=== PATIENT | female | born 1985 | race Caucasian/White ===

== ENCOUNTER 2021-07-01 06:48 | Outpatient (CLI) | payer MEDICAID, SELFPAY ==
--- NOTE | 2021-07-01 06:54 | US_ITS ---
WS: [id number] TRANSVAGINAL PELVIC ULTRASOUND HISTORY: IRREGULAR MENSTRUAL CYCLE, PELVIC PAIN COMPARISON: None available. Uterus: 8.9 cm x 5.5 cm x 4.5 cm. Uterus is top normal size and anteverted. Very minimal heterogeneit y in the myometrium. No fibroid or mass identified. Endometrium: 0.9 cm. No abnormality. No increased vascularity or mass identified. Right ovary: 2.3 cm x 1.9 cm x 3.2 cm. Normal size and vascularity, no cystic or solid masses. Small follicles in the RIGHT ovary. Left ovary: 3.1 cm x 1.3 cm x 2.1 cm. Normal size and vascularity, no cystic or solid masses. No free fluid. US/US transvaginal [id number] IMPRESSION: 1. Normal endometrium. 2. Normal uterus.
== END 2021-07-01 06:49 | disposition home or self-care (01) ==
LOC: RAD 06:49
PROVIDERS: Family Provider Family Medicine; PCP Family Medicine; Visit Provider Family Medicine
DX: N92.6 Irregular menstruation, unspecified (principal); R10.2 Pelvic and perineal pain
CPT/HCPCS: 76830

== ENCOUNTER → 2022-01-19 10:02 | Outpatient (BNVA) | payer MEDICAID, SELFPAY | PROVIDERS: PCP Nurse Practitioner; Visit Provider Family Medicine | DX: M25.511 Pain in right shoulder (principal) | CPT/HCPCS: 73030 ==

== ENCOUNTER 2024-04-26 13:53 | Emergency (ER) | payer OTHER, SELFPAY ==
[2024-04-26 13:55] VITALS: BP 109/81; PULSE 103; RESP 16; TEMP 36.3; O2SAT 99; BMI 29.2
[2024-04-26 14:17] LABS: Bilirubin Urine Negative (Negative); Blood Urine Negative (Negative); Glucose Urine UA Negative (Normal); Ketones Urine Negative (Negative); Leukocyte Esterase Urine Negative (Negative); Nitrate Urine Negative (Negative); Protein Urine Negative (Negative); Specific Gravity, Urine 1.021 (1.005-1.030); Urine Appearance Clear (CLEAR); Urine Color Yellow (Yellow); pH Urine 5.5 (5-7)
[2024-04-26 14:22] LABS: Add Urine Microscopic? YES; Bacteria Urine None Seen /hpf; Hyaline Casts Urine 0.81 /lpf; Squamous Epithelial Cell Urine 0-5 /hpf (0-5); WBC Urine 0-5 /hpf (0-5)
[2024-04-26 14:31] LABS: Basophils # 0.1 10^3/uL (0.0-0.1); Basophils % 0.7 %; Eosinophils # 0.4 10^3/uL (0.0-0.8); Eosinophils % 2.5 %; Hematocrit 53.1 % (36-47); Lymphocytes # 5.5 10^3/uL (0.8-4.8); Lymphocytes % 35.4 %; Mean Corpuscular HGB Conc 33.7 g/dL (30-55); Mean Platelet Volume 9.6 fL (7.4-10.4); Monocytes # 0.6 10^3/uL (0.2-0.9); Monocytes % 3.9 %; Neutrophils # 8.86 10^3/uL (1.8-7.7); Nucleated Red Blood Cells % 0 %; Platelet Count 367 10^3/cmm (157-399); Red Blood Count 5.42 10^6/uL (3.85-5.65); Red Cell Distribution Width 12.3 % (12.1-15.1); White Blood Count 15.53 10^3/uL (3.29-11.43)
[2024-04-26 14:39] LABS: HCG, Serum Qual Negative (Negative)
[2024-04-26 14:45] LABS: Alanine Aminotransferase 27 U/L (0-33); Albumin Level 4.7 g/dL (3.5-5.2); Alkaline Phosphatase 102 U/L (35-105); Anion Gap 18.9 (5-19); Aspartate Amino Transferase 19 U/L (0-32); Blood Urea Nitrogen 8 mg/dL (6-20); Calcium 9.6 mg/dL (8.5-10.5); Carbon Dioxide 21 mmol/L (22-29); Chloride 102 mmol/L (98-107); Creatinine Clr Calc Pharmacy 100.6523; Globulin 2.5 g/dL (1.3-4.6); Glomerular Filtration Rate 93.2 mL/min (90-130); Glucose 81 mg/dL (65-115); Lipase 52 U/L (13-60); Osmolality Calculated 283 mOsm/kg (285-295); Potassium 3.9 mmol/L (3.5-5.1); Sodium 138 mmol/L (136-145); Total Bilirubin 0.4 mg/dL (0.15-1.2); Total Protein 7.2 g/dL (6.6-8.7)
[2024-04-26 14:49] VITALS: BP 122/87; PULSE 77; RESP 16; O2SAT 98
--- NOTE | 2024-04-26 15:03 | CTR_ITS ---
PROCEDURE INFORMATION: Exam: CT Abdomen And Pelvis With Contrast Exam date and time: 04/26/2024 3:24 PM Age: 39 years old Clinical indication: Abdominal pain; Localized; Right; Additional info: R abdominal pain TECHNIQUE: Imaging protocol: Computed tomography of the abdomen and pelvis with contrast. Radiation optimization: All CT scans at this facility use at least one of these dose optimization techniques: automated exposure control; mA and/or kV adjustment per patient size (includes targeted exams where dose is matched to clinical indication); or iterative reconstruction. Contrast material: OMNIPAQUE 350; Contrast volume: 100 ml; Contrast route: INTRAVENOUS (IV); COMPARISON: US transvaginal [id number] 07/01/2021 7:16 AM RADIATION DOSE METRICS: Total DLP (mGy-cm): 598.92 FINDINGS: Heart: AICD leads partially imaged. Liver: Normal. No mass. Gallbladder and biliary ducts: Normal. No calcified stones. No ductal dilation. Pancreas: Normal. No ductal dilation. Spleen: Normal. No splenomegaly. Adrenal glands: Normal. No mass. Kidneys and ureters: Normal. No hydronephrosis. Stomach and bowel: Unremarkable. No obstruction. No mucosal thickening. Appendix: No evidence of appendicitis. Intraperitoneal space: Unremarkable. No free air. No significant fluid collection. Vasculature: Mild atherosclerotic aortic calcifications. No aortic aneurysm. Lymph nodes: Unremarkable. No enlarged lymph nodes. Urinary bladder: Unremarkable as visualized. Reproductive: Unremarkable as visualized. Bones/joints: Unremarkable. No acute fracture. Soft tissues: Unremarkable. CT/CT abdomen pelvis w con* [id number] IMPRESSION: No acute findings in the abdomen/pelvis.
--- NOTE | 2024-04-26 15:10 | ED_ITS ---
HPI - Abdominal Pain 2 General: Chief Complaint: Abdominal Pain Stated Complaint: rt abd pain Time Seen by Provider: 04/26/24 14:47 Source: patient and family Mode of arrival: ambulatory Limitations: no limitations History of Present Illness: Patient is a nice 39-year-old female presents to the ED today with a complaint of right sided abdominal pain started approximately 3 days ago. She describes the pain as fairly sharp and somewhat constant. She has not had any vomiting or changes in her bowel movements. She has not had any urinary symptoms such as frequency, urgency, or dysuria. Denies flank pain. She was reportedly seen by her primary care/walk-in clinic and referred to the emergency department for further evaluation. All signs are stable upon arrival. Denies previous abdominal surgeries. MD elicited complaint: abdominal pain Onset (ago): day(s) Pain Consistency: constant Location: RUQ and RLQ Severity: moderate Quality: sharp Radiation: none Migration to: no migration Exacerbating factors: movement Relieving factors: nothing Associated Symptoms: Reports no associated symptoms; Denies change in bowel habits, chills, diarrhea, dysuria, fever(s) and vomiting Related Data Home Medications Medication Instructions Recorded Confirmed acetaminophen-pamabrom 500 mg-25 1 tab PO Q6H PRN 04/12/23 04/26/24 mg tablet (Midol) aspirin 81 mg tablet,delayed 81 mg PO DAILY 04/12/23 04/26/24 release (Adult Low Dose Aspirin) blood sugar support PO 04/12/23 04/26/24 cetirizine 10 mg capsule (Zyrtec) 10 mg PO DAILY PRN 04/12/23 04/26/24 diphenhydramine 25 1 tab PO Q6H PRN 04/12/23 04/26/24 mg-acetaminophen 500 mg tablet (Tylenol PM Extra Strength) magnesium 250 mg tablet 500 mg PO DAILY 04/12/23 04/26/24 mecobalamin (vitamin B12) 5,000 5,000 mcg PO DAILY 04/12/23 04/26/24 mcg chewable tablet omega-3 fatty acids 1,000 mg 2,000 mg PO DAILY 04/12/23 04/26/24 capsule (Super [place]-3) metoprolol succinate 100 mg 100 mg PO BID 08/08/23 04/26/24 tablet,extended release 24 hr Previous Rx's Medication Instructions Recorded albuterol sulfate 90 mcg/actuation 2 puff inhalation Q4H PRN 03/08/24 aerosol inhaler shortness of breath or wheezing #8.5 grams alprazolam 0.5 mg tablet 0.5 mg PO TID #90 tabs 03/08/24 Allergies Allergy/AdvReac Type Severity Reaction Status Date / Time No Known Allergies Allergy Verified 04/26/24 13:57 Review of Systems 2 Const: Denies: fever(s), chills, body aches, fatigue or malaise Card: Denies: chest pain Resp: Denies: dyspnea GI: Reports: abdominal pain; Denies: vomiting, diarrhea or change in bowel habits : Denies: flank pain, difficulty voiding, dysuria, urinary frequency, urinary urgency or urinary hesitancy Musc: Denies: neck pain, back pain, extremity pain, extremity swelling, joint pain or joint swelling Skin/Breast: Denies: rash Neuro: Denies: headache(s), numbness in extremities, weakness in extremities, sensory changes or dizziness PFSH ED 2 PFSH: Medical History Anxiety Pacemaker with defibrillator Defibrillator discharge Surgical History History of section Social History Smoking and tobacco/nicotine status: current every day tobacco/nicotine user cigarettes Alcohol intake: never Physical Exam 2 Const: COMMON NORMALS: no acute distress, average body habitus, patient oriented x3, no limitations, healthy appearing, alert and well nourished G ENERAL APPEARANCE: cooperative Eye: COMMON NORMALS: no scleral icterus Resp: COMMON NORMALS: normal respiratory effort and clear to auscultation bilaterally AUSCULTATION: clear to auscultation bilaterally Cardio: COMMON NORMALS: regular rate and regular rhythm RATE: regular rate RHYTHM: regular rhythm GI: COMMON NORMALS: Normal to inspection, nondistended, normoactive bowel sounds present, Soft to palpation, No hepatosplenomegaly present and no masses INSPECTION: Yes normal to inspection AUSCULTATION: Yes normoactive bowel sounds PALPATION: Yes Soft to palpation, Yes Tenderness to palpation present (GI) Details: RLQ and RUQ, Yes Guarding due to palpation present (GI), No Rigid due to palpation and Yes No hepatosplenomegaly present : COMMON NORMALS: Yes no CVA tenderness BLADDER/KIDNEY EXAM: Yes no CVA tenderness Back/Pelvis: COMMON NORMALS: no CVA tenderness and thoracic and lumbar spine normal to inspection Extremity: GENERAL: Yes normal exam except as noted Neuro: COMMON NORMALS: patient oriented x3, moves all extremities, no focal motor deficits, no sensory deficits noted and gait normal S ENSORIUM/ORIENTATION: Yes alert Skin: COMMON NORMALS: no rashes or lesions noted GENERAL SKIN EXAM: no rashes or lesions noted Course 2 Vital Signs: Vital signs: Vital Signs Temperature 97.4 F L 04/26/24 13:55 Pulse Rate 77 04/26/24 14:49 Respiratory Rate 16 04/26/24 14:49 Blood Pressure 122/87 04/26/24 14:49 Pulse Oximetry 98 04/26/24 14:49 Oxygen Delivery Me thod Room Air 04/26/24 13:55 MDM - Abdominal Pain Medical Decision Making Patient's vital signs have remained stable throughout her stay. Her blood work overall is nonactionable. She does tell me she has chronic leukocytosis that has been worked up many times in the past including oncology. White count today is 15.5 which she states is lower than her normal. Remainder of blood work appears stable. UA does not appear grossly infected. CT imaging showing no acute findings. Patient will be allowed discharge with return precautions. Otherwise I would like her to follow-up with primary care next week for continued symptoms. Patient is agreeable to this plan. Medical Records I reviewed the patient's medical records. Lab Data I reviewed the patient's lab results. 04/26/24 14:20 04/26/24 14:20 Labs/Radiology: Radiology Impressions Abdomen/Pelvis CT 04/26/24 15:03 IMPRESSION: No acute findings in the abdomen/pelvis. Laboratory Results WBC 15.53 10^3/uL (3.29-11.43) H 04/26/24 14:20 RBC 5.42 10^6/uL (3.85-5.65) 04/26/24 14:20 Hgb 17.90 g/dL (11.27-16.99) H 04/26/24 14:20 Hct 53.1 % (36-47) H 04/26/24 14:20 MCV 98.0 fl (85-98) 04/26/24 14:20 MCH 33.0 pg (27-33) 04/26/24 14:20 MCHC 33.7 g/dL (30-55) 04/26/24 14:20 RDW 12.3 % (12.1-15.1) 04/26/24 14:20 Plt Count 367 10^3/cmm (157-399) 04/26/24 14:20 MPV 9.6 fL (7.4-10.4) 04/26/24 14:20 Neut % (Auto) 57.0 % 04/26/24 14:20 Lymph % (Auto) 35.4 % 04/26/24 14:20 Boundary % (Auto) 3.9 % 04/26/24 14:20 Eos % (Auto) 2.5 % 04/26/24 14:20 Baso % (Auto) 0.7 % 04/26/24 14:20 Neut # (Auto) 8.86 10^3/uL (1.8-7.7) H 04/26/24 14:20 Lymph # (Auto) 5.5 10^3/uL (0.8-4.8) H 04/26/24 14:20 Boundary # (Auto) 0.6 10^3/uL (0.2-0.9) 04/26/24 14:20 Eos # (Auto) 0.4 10^3/uL (0.0-0.8) 04/26/24 14:20 Baso # (Auto) 0.1 10^3/uL (0.0-0.1) 04/26/24 14:20 Nucleated RBC % (auto) 0 % 04/26/24 14:20 Nucleated RBCs # 0.0 /100WBC 04/26/24 14:20 Sodium 138 mmol/L (136-145) 04/26/24 14:20 Potassium 3.9 mmol/L (3.5-5.1) 04/26/24 14:20 Chloride 102 mmol/L (98-107) 04/26/24 14:20 Carbon Dioxide 21 mmol/L (22-29) L 04/26/24 14:20 Anion Gap 18.9 (5-19) 04/26/24 14:20 BUN 8 mg/dL (6-20) 04/26/24 14:20 Creatinine 0.7 mg/dL (0.5-0.9) 04/26/24 14:20 GFR Calculation 93.2 mL/min (90-130) 04/26/24 14:20 Glucose 81 mg/dL (65-115) 04/26/24 14:20 Calculated Osmolality 283 mOsm/kg (285-295) L 04/26/24 14:20 Calcium 9.6 mg/dL (8.5-10.5) 04/26/24 14:20 Total Bilirubin 0.4 mg/dL (0.15-1.2) 04/26/24 14:20 AST 19 U/L (0-32) 04/26/24 14:20 ALT 27 U/L (0-33) 04/26/24 14:20 Alkaline Phosphatase 102 U/L (35-105) 04/26/24 14:20 Total Protein 7.2 g/dL (6.6-8.7) 04/26/24 14:20 Albumin 4.7 g/dL (3.5-5.2) 04/26/24 14:20 Globulin 2.5 g/dL (1.3-4.6) 04/26/24 14:20 Lipase 52 U/L (13-60) 04/26/24 14:20 HCG, Qual Negative (Negative) 04/26/24 14:20 Urine Color Yellow (Yellow) 04/26/24 14:03 Urine Appearance Clear (CLEAR) 04/26/24 14:03 Urine pH 5.5 (5-7) 04/26/24 14:03 Ur Specific [place] 1.021 (1.005-1.030) 04/26/24 14:03 Urine Protein Negative (Negative) 04/26/24 14:03 Urine Glucose (UA) Negative (Normal) 04/26/24 14:03 Urine Ketones Negative (Negative) 04/26/24 14:03 Urine Blood Negative (Negative) 04/26/24 14:03 Urine Nitrate Negative (Negative) 04/26/24 14:03 Urine Bilirubin Negative (Negative) 04/26/24 14:03 Urine Urobilinogen 1.0 mg/dL (Negative) 04/26/24 14:03 Ur Leukocyte Esterase Negative (Negative) 04/26/24 14:03 Urine RBC 3-5 /hpf (0-2) 04/26/24 14:03 Urine WBC 0-5 /hpf (0-5) 04/26/24 14:03 Ur Squamous Epith Cells 0-5 /hpf (0-5) 04/26/24 14:03 Amorphous Sediment Not Reportable 04/26/24 14:03 Urine Bacteria None seen /hpf (NONE) 04/26/24 14:03 Hyaline Casts 0.81 /lpf 04/26/24 14:03 All radiology interpretation(s) finalized by discharge Discharge Plan Discharge Patient Disposition: Home Clinical Impression: Right-sided abdominal pain of unknown etiology Condition: Stable Prescriptions: No Action aspirin [Adult Low Dose Aspirin] 81 mg tablet,delayed release (DR/EC) 81 mg PO DAILY blood sugar support PO omega-3 fatty acids [Super [place]-3] 1,000 mg capsule 2,000 mg PO DAILY magnesium 250 mg tablet 500 mg PO DAILY mecobalamin (vitamin B12) 5,000 mcg tablet,chewable 5,000 mcg PO DAILY Midol 500-25 mg tablet 1 tab PO Q6H PRN Zyrtec 10 mg capsule 10 mg PO DAILY PRN diphenhydramine-acetaminophen [Tylenol PM Extra Strength] 25-500 mg tablet 1 tab PO Q6H PRN metoprolol succinate 100 mg tablet extended release 24 hr 100 mg PO BID alprazolam 0.5 mg tablet 0.5 mg PO TID Qty: 90 2RF albuterol sulfate 90 mcg/actuation HFA aerosol inhaler 2 puff inhalation Q4H PRN (Reason: shortness of breath or wheezing) Qty: 8.5 1RF Discharge Orders: Discharge ED (Routine); Ordered 04/26/24 Ordered By: Ashley Kenny Referrals: Angela Vigil NP [Primary Care Provider] - Patient Instructions: Abdominal Pain (ED) Activity Restrictions/Additional Instructions: As we discussed, your blood work and urine were overall unremarkable. CT imaging did not show any etiology for your discomfort. I would like you to follow-up with primary care next week if symptoms persist. You were given instructions on returning to the emergency department. I hope you begin to feel better soon. Coding Level of Care Code ED Production Support Manager for Cindy Guardado
[2024-04-26] MEDS: iohexol 350 mg/mL 500 mL Btl (per mL) IV (15:29)
[2024-04-26] MEDS: ondansetron 2 mg/ML SDV 2 mL 4 MG IVP (15:51)
[2024-04-26 16:41] VITALS: BP 102/73; PULSE 64; RESP 16; O2SAT 96
== END 2024-04-26 16:31 | disposition home or self-care (01) ==
PROVIDERS: Emergency Medicine; Emergency Provider Physician Assistant; PCP Nurse Practitioner Family
DX: R10.9 Unspecified abdominal pain (principal); Z79.82 Long term (current) use of aspirin; F17.210 Nicotine dependence, cigarettes, uncomplicated
CPT/HCPCS: 74177; 80053; 81001; 83690; 84703; 85025; 96374; 99285; J2405

== ENCOUNTER → 2024-09-04 11:10 | Outpatient (BNVA) | payer OTHER, SELFPAY | PROVIDERS: PCP Nurse Practitioner Family; Visit Provider Nurse Practitioner Family | DX: E53.8 Deficiency of other specified B group vitamins (principal); R53.83 Other fatigue; E55.9 Vitamin D deficiency, unspecified; Z13.6 Encounter for screening for cardiovascular disorders | CPT/HCPCS: 80053; 80061; 82306; 82607; 84443; 85025 ==

== ENCOUNTER → 2024-12-05 07:26 | Outpatient (BNVA) | payer OTHER, SELFPAY | PROVIDERS: PCP Nurse Practitioner Family; Visit Provider Nurse Practitioner Family | DX: I47.10 Supraventricular tachycardia, unspecified (principal) | CPT/HCPCS: 80048; 81025; 85025 ==

== ENCOUNTER → 2025-02-24 10:30 | Outpatient (BNVA) | payer OTHER, SELFPAY | PROVIDERS: PCP Nurse Practitioner Family; Visit Provider Nurse Practitioner Family | DX: Z79.899 Other long term (current) drug therapy (principal) | CPT/HCPCS: 80048 ==